=== PATIENT | male | born 1980 | race Hispanic/Latino ===

== ENCOUNTER 2019-07-15 08:02 | Day surgery (SDC) | payer MEDICARE ==
[~2019-07-15] VITALS: Ht 162.6 cm; Wt 65.8 kg
[2019-07-15] VITALS (10 sets, daily range): BP systolic 119–162; BP diastolic 53–81
[~2019-07-15 08:02] MED LIST: CARV25TA PO; CLON1PAT13 TD; GABA-529 PO; INSU3INS3 SQ; LORA-192 PO; METR45CR TP; SODIUM CHLORIDE 0.9% 1000ML 1,000 ML IV ONE; SUCR500T PO
[2019-07-15 09:11] LABS: POTASSIUM 4.3 mmol/L (3.5-5.1)
[2019-07-15 09:12] LABS: CREATININE 7.7 mg/dL (0.5-1.5)
[2019-07-15] MEDS ORDERED: SERT25TA5 PO (09:15)
[2019-07-15] MEDS ORDERED: CETI10TA86 PO (09:15)
[2019-07-15] MEDS ORDERED: PROPOFOL 10 MG/ML 20ML VIAL IV ONE ×2 (09:29)
[2019-07-15] MEDS ORDERED: MIDAZOLAM HCL 1 MG/ML 2ML VIAL ONE (09:37)
== END 2019-07-15 10:56 | disposition home or self-care (01) ==
LOC: DAH 08:02 → ENDO 08:02
PROVIDERS: ATTEND Internal Medicine Gastroenterology
DX: Z12.11 Encounter for screening for malignant neoplasm of colon (principal); R14.0 Abdominal distension (gaseous); K29.70 Gastritis, unspecified, without bleeding; K31.89 Other diseases of stomach and duodenum; K74.60 Unspecified cirrhosis of liver; K21.0 Gastro-esophageal reflux disease with esophagitis; E11.22 Type 2 diabetes mellitus with diabetic chronic kidney disease; I12.0 Hypertensive chronic kidney disease with stage 5 chronic kidney disease or end stage renal disease; N18.6 End stage renal disease; J44.9 Chronic obstructive pulmonary disease, unspecified; F41.9 Anxiety disorder, unspecified; F32.9 Major depressive disorder, single episode, unspecified; Z88.1 Allergy status to other antibiotic agents; Z88.2 Allergy status to sulfonamides; Z88.8 Allergy status to other drugs, medicaments and biological substances; Z90.49 Acquired absence of other specified parts of digestive tract; Z86.010 Personal history of colon polyps; Z72.89 Other problems related to lifestyle; Z79.4 Long term (current) use of insulin; Z82.49 Family history of ischemic heart disease and other diseases of the circulatory system; Z83.3 Family history of diabetes mellitus
CPT/HCPCS: 36415; 43239; 80048; 82948 ×2; A4215; A4221; A4222; A4223; A4606; A4620; A4657; A4663; G0105; J2250; J2704 ×2; J7030